=== PATIENT | male | born 2000 | race Two or more races ===

== ENCOUNTER 2022-12-30 19:15 | Emergency (ER) | payer SELFPAY ==
[~2022-12-30] VITALS: Ht 177.8 cm; Wt 99.8 kg
--- NOTE | 2022-12-30 19:51 | NUR ---
URINE COLLECTED AND SENT TO LAB
--- NOTE | 2022-12-30 20:14 | NUR ---
CHELO - BROTHER [phone]
--- NOTE | 2022-12-30 22:54 | NUR ---
CALLED BROTHER FOR SUGGESTION CLERK. NO ANSWER
--- NOTE | 2022-12-31 04:09 | NUR ---
Pt is awake. Ambulated to restroom on steady gait. Pt is ok to be discharge. made aware
--- NOTE | 2022-12-31 04:10 | NUR ---
Patient discharged to home in stable condition. Written and verbal after care instructions given. Patient verbalizes understanding of instruction. PT ambulatory with a steady gait
[2022-12-31 04:14] VITALS: BP 137/87
== END 2022-12-31 04:17 | disposition home or self-care (01) ==
LOC: ER 19:19 → EDBD 19:19 → ER 12-31 04:17
DX: F10.129 Alcohol abuse with intoxication, unspecified (principal); Y90.9 Presence of alcohol in blood, level not specified
CPT/HCPCS: 82962-TC